=== PATIENT | female | born 1945 | race Caucasian/White ===

== ENCOUNTER → 2024-04-26 14:49 | Outpatient (REF) | payer MEDICARE, OTHER, SELFPAY | LOC: WDC 14:49 | PROVIDERS: ATTENDING PHYSICIAN Family Medicine | DX: Z12.31 Encounter for screening mammogram for malignant neoplasm of breast (principal) | CPT/HCPCS: 77063; 77067 ==

== ENCOUNTER → 2024-05-21 09:56 | Outpatient (REF) | payer MEDICARE, OTHER, SELFPAY | LOC: WDC 09:56 | PROVIDERS: ATTENDING PHYSICIAN Family Medicine | DX: R92.8 Other abnormal and inconclusive findings on diagnostic imaging of breast (principal) | CPT/HCPCS: 76642 ==

== ENCOUNTER 2024-10-25 06:26 | Day surgery (SDC) | payer MEDICARE, OTHER, SELFPAY ==
[2024-10-25 07:55] LABS: Glucose - Point of Care 138 mg/dl (70-99)
== END 2024-10-25 09:42 | disposition home or self-care (01) ==
LOC: GI 06:26
PROVIDERS: ATTENDING PHYSICIAN Internal Medicine Gastroenterology
DX: Z12.11 Encounter for screening for malignant neoplasm of colon (principal); K50.90 Crohn's disease, unspecified, without complications; D12.2 Benign neoplasm of ascending colon; D12.3 Benign neoplasm of transverse colon; D12.4 Benign neoplasm of descending colon; D12.5 Benign neoplasm of sigmoid colon; K63.5 Polyp of colon; D12.8 Benign neoplasm of rectum; K64.8 Other hemorrhoids
CPT/HCPCS: 45385; 45380; 45381; 88305; 82962

== ENCOUNTER → 2024-11-22 14:14 | Outpatient (REF) | payer MEDICARE, OTHER, SELFPAY | LOC: WDC 14:14 | PROVIDERS: ATTENDING PHYSICIAN Family Medicine | DX: R92.8 Other abnormal and inconclusive findings on diagnostic imaging of breast (principal) | CPT/HCPCS: 77061; 77063; 77065; 77067 ==

== ENCOUNTER 2025-01-16 06:05 | Day surgery (SDC) | payer MEDICARE, OTHER, SELFPAY ==
[2025-01-16 08:28] LABS: Glucose - Point of Care 139 mg/dl (70-99)
[2025-01-16 08:34] VITALS: BMI 28.7
[2025-01-16 08:35] VITALS: BP 164/90; BMI 28.7
[2025-01-16 11:45] VITALS: BP 129/70
[2025-01-16 11:58] VITALS: BP 161/78
[2025-01-16 12:00] VITALS: BP 154/80
[2025-01-16 12:15] VITALS: BP 151/98
[2025-01-16 12:18] VITALS: BP 152/86
== END 2025-01-16 12:25 | disposition home or self-care (01) ==
LOC: SDS 06:05
PROVIDERS: ATTENDING PHYSICIAN Internal Medicine Gastroenterology
DX: K63.5 Polyp of colon (principal); K55.20 Angiodysplasia of colon without hemorrhage; K64.1 Second degree hemorrhoids; D12.3 Benign neoplasm of transverse colon
CPT/HCPCS: 45390; 45385; 82962; 88305

== ENCOUNTER → 2025-05-02 13:00 | Outpatient (REF) | payer MEDICARE, OTHER, SELFPAY | LOC: WDC 13:00 | PROVIDERS: ATTENDING PHYSICIAN Family Medicine | DX: Z12.31 Encounter for screening mammogram for malignant neoplasm of breast (principal) | CPT/HCPCS: 77063; 77067 ==